=== PATIENT | female | born 1985 | race Caucasian/White ===

== ENCOUNTER 2017-01-02 15:03 | Emergency (ER) | payer OTHER ==
[~2017-01-02] VITALS: Ht 165.1 cm; Wt 59.0 kg
[2017-01-02 15:06] VITALS: BP 140/103
[2017-01-02] MEDS ORDERED: IBUPROFEN 800800 M1 PO ×2 (17:14→17:15)
[2017-01-02] MEDS ORDERED: NORFLEX100 MG PO ×2 (17:14→17:15)
[2017-01-02] MEDS ORDERED: PREDNISONE 20 M20 MG PO ×2 (17:14→17:15)
== END 2017-01-02 17:34 | disposition home or self-care (01) ==
LOC: ER 15:03
DX: R60.9 Edema, unspecified (principal); M54.10 Radiculopathy, site unspecified; F10.99 Alcohol use, unspecified with unspecified alcohol-induced disorder; Z77.22 Contact with and (suspected) exposure to environmental tobacco smoke (acute) (chronic)

== ENCOUNTER 2020-06-04 19:32 | Emergency (ER) | payer OTHER ==
[~2020-06-04] VITALS: Ht 165.1 cm; Wt 59.0 kg
[~2020-06-04 19:32] MED LIST: IBUPROFEN 800800 M1 PO; NORFLEX100 MG PO; PREDNISONE 20 M20 MG PO
[2020-06-04 19:54] LABS: URINE BILIRUBIN NEGATIVE (Negative); URINE BLOOD 3+ (Negative); URINE CLARITY CLEAR; URINE COLOR YELLOW; URINE GLUCOSE-RANDOM* NEGATIVE (Negative); URINE KETONES NEGATIVE (Negative); URINE LEUKOCYTES-REFLEX NEGATIVE (Negative); URINE NITRITE-REFLEX NEGATIVE (Negative); URINE PROTEIN (DIPSTICK) NEGATIVE (Negative); URINE SPECIFIC GRAVITY 1.015 (1.005-1.035); URINE UROBILINOGEN 0.2 E.U./dl (0.2-1.0)
[2020-06-04 20:25] LABS: BASOPHILS 0.6 % (0.0-2.0); EOSINOPHILS 0.9 % (0.0-3.0); HEMATOCRIT 44.5 % (37.0-47.0); HEMOGLOBIN 15.3 gm/dL (12.0-15.0); LYMPHOCYTES 19.1 % (24.0-44.0); MCHC 34.5 g/dL (28.0-37.0); MCV 89.9 fL (80.0-100.0); PLATELET COUNT 341 thou/uL (150-400); POLYS 74.4 % (36.0-66.0); RBC 4.95 mil/uL (4.20-5.00); RDW 13.1 % (10.5-14.5)
[2020-06-04 20:26] LABS: BACTERIA-REFLEX 1-9 Few /HPF (None Seen); CASTS None Seen /LPF (None Seen); CRYSTALS None Seen /LPF (None Seen); SQUAMOUS None Seen /LPF (0-3); URINE RBC 3-10 Few /HPF (0-2); URINE WBC-REFLEX 0-5 Rare /HPF (0-5)
[2020-06-04 20:29] LABS: AMP/METHAMP Negative (Negative); BARBITURATES Negative (Negative); BENZODIAZEPINES Negative (Negative); COCAINE Negative (Negative); METHADONE Negative (Negative); OPIATES Negative (Negative); PCP Negative (Negative)
[2020-06-04 21:10] LABS: ALBUMIN 4.8 g/dL (3.4-5.0); CALCIUM 9.7 mg/dL (8.5-10.1); POTASSIUM 3.3 mmol/L (3.5-5.1); TOTAL BILIRUBIN 0.3 mg/dL (0.2-1.0); TOTAL PROTEIN 8.9 g/dL (6.4-8.2)
[2020-06-04] MEDS ORDERED: XANAX 0.25 MG0.25 MG PO (23:37)
[2020-06-04 23:59] VITALS: BP 143/90
--- NOTE | 2020-06-05 07:15 | EKG ---
[place] [address] [facility] [place] [address] ELECTROCARDIOGRAM REPORT Name: RUPAL PATHAK [facility]: [facility]edom[facility] [id number] Admission: 06/04/20 Attend Phys: Discharge: 06/05/20 Date of : 89 Report #: [id number] [facility] ED Test Date: 2020-06-04 Test Time: 20:44:50 Pat Name: RUPAL PATHAK Department: Room: Gender: F Court Deputy: lary : 1985 Requested By: Apolinar Smith Order Number: [id number] MD: Rivera Katz Measurements Intervals [place] Rate: 123 P: 74 NM: 123 QRS: 40 QRSD: 99 T: -1 QT: 313 QTc: 448 Interpretive Statements Sinus tachycardia Probable left atrial enlargement RSR' in V1 or V2, right VCD or RVH No previous ECG available for comparison Electronically Signed On 06-05-2020 7:15:32 [employer] by Rivera Katz [email or web address] <ELECTRONICALLY SIGNED> By: Rivera Katz MD, [facility] 06/05/20 0715 2044 Rivera Katz MD, FACC /EPI
== END 2020-06-05 02:57 | disposition home or self-care (01) ==
LOC: ER 19:32
PROVIDERS: Emergency Medicine
DX: S39.011A Strain of muscle, fascia and tendon of abdomen, initial encounter (principal); F32.9 Major depressive disorder, single episode, unspecified; F41.9 Anxiety disorder, unspecified; R11.2 Nausea with vomiting, unspecified; F12.90 Cannabis use, unspecified, uncomplicated; X58.XXXA Exposure to other specified factors, initial encounter; Y93.89 Activity, other specified; Y92.89 Other specified places as the place of occurrence of the external cause; Y99.9 Unspecified external cause status